=== PATIENT | male | born 1965 | race Caucasian/White ===

== ENCOUNTER 2017-11-17 08:40 | Day surgery (SDC) | payer OTHER ==
[2017-11-13 09:09] VITALS: BP 127/79
[~2017-11-17] VITALS: Ht 167.6 cm; Wt 66.3 kg
[~2017-11-17 08:40] MED LIST: BIOTIN; MINO45TA PO; MULT-758 PO; NONE PER PT
[2017-11-17] MEDS ORDERED: LACTATED RINGERS 1,000 ML IV SCH (09:14)
[2017-11-17 09:19] VITALS: BP 127/79
[2017-11-17] MEDS ORDERED: LIDOCAINE-MPF 1%, 2ML INFIL ONE (09:30)
[2017-11-17] MEDS ORDERED: PROPOFOL 50 ML ONE (09:42)
[2017-11-17] MEDS ORDERED: EPINEPHRINE SYRINGE 0.1 MG/ML, 10ML ONE (09:49)
[2017-11-17] MEDS ORDERED: ONDANSETRON ODT 8 MG PO PRN (10:00)
[2017-11-17] MEDS ORDERED: MIDAZOLAM 1 MG/ML, 2ML IV PRN (10:00)
[2017-11-17] MEDS ORDERED: FENTANYL PF 100 MCG/2ML IV PRN (10:00)
[2017-11-17] MEDS ORDERED: EPHEDRINE 50 MG/ML, 1ML IVPush PRN (10:00)
[2017-11-17] MEDS ORDERED: LABETALOL 5MG/ML, 20ML IV PRN (10:00)
== END 2017-11-17 12:00 ==
LOC: OUT 08:40
PROVIDERS: ATTEND Internal Medicine Geriatric Medicine
DX: D12.2 Benign neoplasm of ascending colon (principal); E78.5 Hyperlipidemia, unspecified; Z79.899 Other long term (current) drug therapy
CPT/HCPCS: 88305; J2704; J7120

== ENCOUNTER 2018-06-06 01:39 | Emergency (ER) | payer OTHER ==
[~2018-06-06] VITALS: Ht 167.6 cm; Wt 71.0 kg
--- NOTE | 2018-06-06 02:43 | NUR ---
PT PRESENTED WITH C/O MID CHEST PAIN. PT REPORTS HE ONLY HAD IT FOR ONE MINUTE AND NOW IT HAS RESOLVED. PT ALSO REPORTS TWO WEEKS AGO HE HAD LEFT ARM PAIN. MONITORS APPLIED, SIDERAILS UP X2, CALL LIGHT WITHIN REACH. ERP AT BEDSIDE FOR EVAL
--- NOTE | 2018-06-06 02:44 | NUR ---
DIRECTOR OF ATHLETICS AT BEDSIDE FOR LAB DRAW
[2018-06-06 02:53] LABS: BASOPHILS # (AUTO) 0.02 x10^3/uL (0-0.1); BASOPHILS % (AUTO) 0 % (0-1); EOSINOPHILS # (AUTO) 0.12 x10^3/uL (0-0.4); EOSINOPHILS % (AUTO) 2 % (1-7); LYMPHOCYTES # (AUTO) 1.12 x10^3/uL (1-3.4); LYMPHOCYTES % (AUTO) 15 % (22-44); MD NO; MEAN CORPUSCULAR HEMOGLOBIN 32.2 pg (27.5-34.5); MEAN CORPUSCULAR VOLUME 94.6 fL (81-97); MONOCYTES # (AUTO) 0.36 x10^3/uL (0.2-0.8); MONOCYTES % (AUTO) 5 % (2-9); NEUTROPHILS # (AUTO) 5.71 x10^3/uL (1.8-6.8); NEUTROPHILS % (AUTO) 78 % (42-75); PLATELET COUNT 330 x10^3/uL (130-400); RED BLOOD COUNT 4.69 x10^6/uL (4.38-5.82); RED CELL DISTRIBUTION WIDTH 13.2 % (9.4-14.8)
--- NOTE | 2018-06-06 03:04 | NUR ---
pt resting on gurney, denies pain or needs, evelyn light within reach. awaiting lab and xray results
[2018-06-06 03:05] LABS: ALBUMIN 3.7 g/dL (3.4-5.0); ANION GAP 7 mmol/L (5-15); CALCIUM 8.3 mg/dL (8.5-10.1); CHLORIDE 107 mmol/L (98-107)
[2018-06-06 03:10] LABS: ALANINE AMINOTRANSFERASE 32 U/L (12-78); ALKALINE PHOSPHATASE 148 U/L (45-117); BILIRUBIN,TOTAL 0.3 mg/dL (0.2-1.0); CREATININE 1.14 mg/dL (0.7-1.3); TOTAL PROTEIN 7.5 g/dL (6.4-8.2); TROPONIN I < 0.015 ng/mL (0.000-0.045)
[2018-06-06 03:59] VITALS: BP 111/72
== END 2018-06-06 04:11 | disposition home or self-care (01) ==
LOC: ED 04:05
DX: R07.2 Precordial pain (principal); M79.602 Pain in left arm; R11.0 Nausea
CPT/HCPCS: 36415; 71046; 80053; 83880; 84484; 85025; 93005; 99284